=== PATIENT | male | born 1940 | race Caucasian/White ===

== ENCOUNTER 2016-04-26 10:23 | Outpatient (CLI) | payer MEDICARE, OTHER ==
[~2016-04-26] VITALS: Ht 170.2 cm; Wt 85.0 kg
[2016-04-26 12:45] LABS: CREATININE - SERUM 1.7 mg/dL (0.6-1.3)
[2016-04-26] MEDS ORDERED: COZAAR50 MG PO (13:38)
[2016-04-26] MEDS ORDERED: COREG6.25 MG PO (13:38)
[2016-04-26] MEDS ORDERED: CARDURA2 MG PO (13:39)
[2016-04-26] MEDS ORDERED: LIPITOR40 MG PO (13:39)
[2016-04-26] MEDS ORDERED: MIRAPEX0.25 MG PO (13:40)
[2016-04-26] MEDS ORDERED: PROPECIA1 MG PO (13:40)
[2016-04-26] MEDS ORDERED: LASIX40 MG PO (13:41)
[2016-04-26 13:43] VITALS: BP 135/52; Ht 170.2 cm; Wt 85.0 kg
[2016-04-26] MEDS ORDERED: KLONOPIN1 MG PO (13:43)
[2016-04-26] MEDS ORDERED: ULTRAM50 MG PO (13:43)
--- NOTE | 2016-04-26 15:30 | NUR ---
RECEIVED FROM CT SCAN. IV OF BICARB CONTINUED AT 85ML/HR VIA PUMP TO RIGHT AC IV SITE.
--- NOTE | 2016-04-26 16:16 | NUR ---
UP TO BATHROOM, GAIT STEADY. VOIDED WITHOUT DIFFICULTY.
--- NOTE | 2016-04-26 18:13 | NUR ---
1730 INFUSION TIME HAS COMPLETED, IV DC'D WITH CATH INTACT. PT. UP TO BR VOIDS, RELEASED IN WC WITH DAUGHTER.
== END 2016-04-26 17:35 | disposition home or self-care (01) ==
LOC: D.OPS 10:23 → D.CT 13:00 → D.OPS 17:35
PROVIDERS: Internal Medicine Cardiovascular Disease
DX: I71.4 Abdominal aortic aneurysm, without rupture (principal)

== ENCOUNTER → 2017-01-23 11:10 | Outpatient (CLI) | payer MEDICARE, OTHER ==
[2016-04-26 13:43] VITALS: BMI 29.3
[~2017-01-23 11:10] MED LIST: CARDURA2 MG PO; COREG6.25 MG PO; COZAAR50 MG PO; KLONOPIN1 MG PO; LASIX40 MG PO; LIPITOR40 MG PO; MIRAPEX0.25 MG PO; PROPECIA1 MG PO; ULTRAM50 MG PO
== END | disposition home or self-care (01) ==
LOC: D.CT 11:10
DX: G20 Parkinson's disease (principal); G91.2 (Idiopathic) normal pressure hydrocephalus

== ENCOUNTER → 2017-05-07 13:39 | Outpatient (CLI) | payer MEDICARE, OTHER ==
[2016-04-26 13:43] VITALS: BMI 29.3
== END | disposition home or self-care (01) ==
LOC: D.CT 13:30
DX: I71.4 Abdominal aortic aneurysm, without rupture (principal)

== ENCOUNTER → 2017-07-26 11:38 | Outpatient (CLI) | payer MEDICARE, OTHER ==
[2016-04-26 13:43] VITALS: BMI 29.3
== END | disposition home or self-care (01) ==
LOC: D.CT 11:38
DX: G91.2 (Idiopathic) normal pressure hydrocephalus (principal)

== ENCOUNTER 2018-01-21 01:05 | Inpatient (IN) | payer MEDICARE, OTHER ==
[~2018-01-21] VITALS: Ht 170.2 cm; Wt 96.4 kg
[2018-01-21] VITALS (14 sets, daily range): BP systolic 100–141; BP diastolic 53–783; Ht 170.2 cm; Wt 96.4 kg
[2018-01-21 01:54] LABS: TROPONIN-I 10.181 ng/mL (0.000-0.060)
[2018-01-21] MEDS ORDERED: ISOSORBIDE MONO30 M1 PO (04:11)
[2018-01-21] MEDS ORDERED: LASIX40 MG PO (04:13)
[2018-01-21] MEDS ORDERED: PREDNISONE1 MG (04:17)
[2018-01-21] MEDS ORDERED: ALDACTONE25 MG PO (04:17)
[2018-01-21] MEDS ORDERED: KLONOPIN1 MG PO (05:16)
[2018-01-21] MEDS ORDERED: ALBUTEROL SULF8.5 GM INH (05:22)
[2018-01-21] MEDS ORDERED: NEURONTIN 300300 MG PO (05:22)
[2018-01-21] MEDS ORDERED: GLIMEPIRIDE2 MG PO (05:22)
[2018-01-21] MEDS ORDERED: METOLAZONE5 MG PO (05:23)
[2018-01-21] MEDS ORDERED: K-TAB10 MEQ PO (05:23)
[2018-01-21] MEDS ORDERED: FLOMAX0.4 MG PO (05:24)
[2018-01-21] MEDS ORDERED: PROSCAR5 MG PO (05:25)
[2018-01-21] MEDS ORDERED: CARBIDOPA-LEVO1 EAC2 PO (05:27)
== END 2018-01-21 15:43 | disposition hospice, inpatient (51) | DRG 281 ==
LOC: D.ER 01:05 → D.M2 02:20
PROVIDERS: Family Medicine
DX: I21.4 Non-ST elevation (NSTEMI) myocardial infarction (principal); I42.8 Other cardiomyopathies; I11.0 Hypertensive heart disease with heart failure; I50.9 Heart failure, unspecified; I25.10 Atherosclerotic heart disease of native coronary artery without angina pectoris; I71.4 Abdominal aortic aneurysm, without rupture; E78.5 Hyperlipidemia, unspecified; F03.90 Unspecified dementia, unspecified severity, without behavioral disturbance, psychotic disturbance, mood disturbance, and anxiety

== ENCOUNTER 2018-01-21 16:00 | Inpatient (IN) | payer OTHER ==
[~2018-01-21] VITALS: Ht 170.2 cm; Wt 92.1 kg
[~2018-01-21 16:00] MED LIST changes: +ALBUTEROL SULF8.5 GM INH; +ALDACTONE25 MG PO; +CARBIDOPA-LEVO1 EAC2 PO; +FLOMAX0.4 MG PO; +GLIMEPIRIDE2 MG PO; +ISOSORBIDE MONO30 M1 PO; +K-TAB10 MEQ PO; +METOLAZONE5 MG PO; +NEURONTIN 300300 MG PO; +PREDNISONE1 MG; +PROSCAR5 MG PO
[2018-01-21 18:16] VITALS: BP 100/53; BMI 33.3
[2018-01-21 20:46] VITALS: BP 68/40
[2018-01-22] VITALS: BP 106/53
[2018-01-22 07:52] VITALS: BP 138/98
[2018-01-22 08:14] VITALS: Ht 170.2 cm; Wt 92.1 kg
== END 2018-01-22 11:15 | DRG 951 ==
LOC: D.M2 16:00
DX: Z51.5 Encounter for palliative care (principal)